=== PATIENT | female | born 1945 | race Caucasian/White ===

== ENCOUNTER 2020-04-24 18:56 | Emergency (ER) | payer MEDICARE, OTHER ==
[~2020-04-24] VITALS: Ht 165.1 cm; Wt 95.5 kg
[2020-04-24] MEDS ORDERED: AMIT100TA PO (19:23)
[2020-04-24] MEDS ORDERED: LISI10TA15 PO (19:23)
[2020-04-24] MEDS ORDERED: HYDR-3363 PO (19:23)
[2020-04-24] MEDS ORDERED: OXYC10TA3 PO (19:23)
[2020-04-24 19:51] LABS: BASO % 0.1 % (0.0-1.0); EOS # 0.1 10^3/uL (0.0-0.5); EOS % 0.3 % (0.0-3.0); HEMATOCRIT 47.8 % (36.0-47.0); HEMOGLOBIN 15.5 g/dl (12.0-15.5); LYMPH # 1.4 10^3/uL (1.5-5.0); LYMPH % 9.2 % (24.0-44.0); MEAN CORPUSCULAR HGB CONC 32.4 g/dl (32.0-36.5); MEAN CORPUSCULAR VOLUME 95.6 fl (80.0-96.0); MONO # 1.2 10^3/uL (0.0-0.8); MONO % 8.4 % (0.0-5.0); NEUTROPHILS % 81.5 % (36.0-66.0); PLATELET COUNT, AUTOMATED 221 10^3/uL (150-450); WHITE BLOOD COUNT 14.7 10^3/uL (4.0-10.0)
[2020-04-24] MEDS ORDERED: ISOVUE-370 76% 100ML VIAL As Ordered ONE (19:56)
[2020-04-24] MEDS ORDERED: ACETAMINOPHEN 325 MG TAB PO ONE (20:00)
[2020-04-24] MEDS ORDERED: NS 1,000 ML IV ONE (20:00)
[2020-04-24 20:21] LABS: ALBUMIN 3.8 GM/DL (3.2-5.2); BILIRUBIN,DIRECT 0.2 MG/DL (0.0-0.2); BILIRUBIN,TOTAL 0.6 MG/DL (0.2-1.0); TOTAL PROTEIN 7.6 GM/DL (6.4-8.2)
--- NOTE | 2020-04-24 20:44 | REPVR ---
PROCEDURE INFORMATION: Exam: CT Abdomen And Pelvis With Contrast Exam date and time: 04/24/2020 8:14 PM Age: 74 years old Clinical indication: Abdominal pain; Additional info: R flank pain TECHNIQUE: Imaging protocol: Computed tomography of the abdomen and pelvis with intravenous contrast. Radiation optimization: All CT scans at this facility use at least one of these dose optimization techniques: automated exposure control; mA and/or kV adjustment per patient size (includes targeted exams where dose is matched to clinical indication); or iterative reconstruction. Contrast material: ISO 370; Contrast volume: 100 ml; Contrast route: IV; COMPARISON: No relevant prior studies available. FINDINGS: Liver: Diffusely hypodense liver consistent with hepatic steatosis. Gallbladder and bile ducts: No calcified stones. No ductal dilation. Pancreas: Normal. No ductal dilation. Spleen: Normal. No splenomegaly. Adrenals: Normal. No mass. Kidneys and ureters: No hydronephrosis. No urolithiasis. Stomach and bowel: Eccentric thickening of the bird of the proximal ascending colon in an area of diverticular disease, with adjacent fat stranding. No evidence of obstruction. Duodenal diverticulum noted. Appendix: No evidence of appendicitis. Intraperitoneal space: No free air. No significant fluid collection. Vasculature: Atherosclerosis. No aneurysm in the included aorta. Lymph nodes: No enlarged lymph nodes. Bladder: Unremarkable. Reproductive: Unremarkable. Bones/joints: No acute fracture. No dislocation. Degenerative changes in the spine. Soft tissues: Small fat containing umbilical hernia. IMPRESSION: 1. Findings consistent with proximal ascending colitis, possibly diverticulitis. Colon cancer could also have this appearance. Recommend follow-up CT or colonoscopy after treatment. 2. Nonacute/incidental findings in the report. Electronically signed by: Eric Steinberg On 04/24/2020 20:44:38 PM
[2020-04-24 21:24] VITALS: BP 145/84
[2020-04-24] MEDS ORDERED: AUGM875T28 PO (21:25)
[2020-04-24] MEDS ORDERED: AUGMENTIN 875 MG TAB PO ONE (21:30)
--- NOTE | 2020-04-26 14:59 | ED PDOC ---
Post-Departure Follow-Up jarred meyers faxed formal report of ct abd/p for fu Pamela Perea MD Apr 26, 2020 14:59
== END 2020-04-24 21:49 | disposition home or self-care (01) ==
LOC: M ED 18:56
DX: K57.32 Diverticulitis of large intestine without perforation or abscess without bleeding (principal); I10 Essential (primary) hypertension; I25.2 Old myocardial infarction; E78.5 Hyperlipidemia, unspecified; R56.9 Unspecified convulsions; M54.9 Dorsalgia, unspecified; Z88.2 Allergy status to sulfonamides; Z88.8 Allergy status to other drugs, medicaments and biological substances; Z79.899 Other long term (current) drug therapy
CPT/HCPCS: 74177; 80047; 80076; 81001; 83690; 85025; 87086; 96360; 96361; 99284; Q9967